=== PATIENT | male | born 1980 ===

== ENCOUNTER 2020-10-29 13:12 | Emergency (ER) | payer OTHER, SELFPAY ==
[2020-10-29] MEDS ORDERED: Acetaminophen 500 MG TAB ONE (14:23)
[2020-10-30 00:10] LABS: SARS-CoV-2 PCR by NAA DETECTED (NotDetected)
== END 2020-10-29 14:29 | disposition home or self-care (01) ==
LOC: ERS 13:12
DX: U07.1 COVID-19 (principal)
CPT/HCPCS: 71045; 93005; U0003; U0005